=== PATIENT | female | born 1945 | race Caucasian/White ===

== ENCOUNTER 2016-12-02 14:40 | Emergency (ER) | payer OTHER ==
[~2016-12-02] VITALS: Ht 157.5 cm; Wt 71.8 kg
[~2016-12-02 14:40] MED LIST: ASCORBIC ACID250 MG PO; Aspirin PO; BENICAR HCT 201 EACH PO; BENICAR HCT PO; CYMBALTA20 MG PO; CYMBALTA30 MG PO; Colace PO; Cymbalta PO; ENDOCET 5-3251 EACH PO; EVISTA60 MG PO; Evista PO; FIBER TABLET PO; FLOVENT 11120 INHALA IH; HUMULIN R100 UNITS/ SC; Humulin R SC; LIPITOR20 MG PO; Lipitor PO; MOTRIN600 MG PO; MYRBETRIQ25 MG PO; NORVASC5 MG PO; NOVOLIN N100 UNITS/ SC; Norvasc PO; PERCOCET 5/31 TABLET PO; PRILOSEC40 MG PO; PROAIR HFA8.5 GM IH; PROTONIX40 M1 PO; PROTONIX40 MG PO; PROZAC20 MG PO; PROzac PO; Proventil,Ventolin H IH; ROCALTROL0.25 MCG PO; Rocaltrol PO; Senokot,Sennagen PO; Theragran W/Iron,MVI PO; Tylenol Extra Streng PO; Vitamin D PO; Vitamin-E PO; WELCHOL625 MG PO
[2016-12-02 15:23] LABS: POINT-OF-CARE METER ID UU13113778
[2016-12-02] MEDS ORDERED: ULTRACET1 TABLET PO (17:39)
[2016-12-02] MEDS ORDERED: ZOFRAN ODT4 MG PO (17:39)
[2016-12-02] MEDS ORDERED: UNABLE TO OBTAIN (21:39)
[2016-12-02 21:44] VITALS: BP 178/91
== END 2016-12-02 21:47 | disposition home or self-care (01) ==
LOC: EME 14:40
DX: S80.01XA Contusion of right knee, initial encounter (principal); S43.401A Unspecified sprain of right shoulder joint, initial encounter; M54.2 Cervicalgia; R51 Headache; W01.10XA Fall on same level from slipping, tripping and stumbling with subsequent striking against unspecified object, initial encounter; R42 Dizziness and giddiness; R11.0 Nausea; I10 Essential (primary) hypertension; E78.5 Hyperlipidemia, unspecified; E11.9 Type 2 diabetes mellitus without complications; Z79.4 Long term (current) use of insulin; Z79.82 Long term (current) use of aspirin
CPT/HCPCS: 73030; 73564; 82948; 99281; 99284

== ENCOUNTER 2017-09-25 08:08 | Emergency (ER) | payer OTHER ==
[~2017-09-25] VITALS: Ht 157.5 cm; Wt 63.7 kg
[~2017-09-25 08:08] MED LIST changes: +ULTRACET1 TABLET PO; +UNABLE TO OBTAIN; +ZOFRAN ODT4 MG PO
[2017-09-25 08:58] LABS: BASOPHIL (%) 0.4 % (0-1); EOSINOPHIL (%) 5.7 % (0-5); EOSINOPHIL COUNT 0.4 K/uL (0-0.3); HEMATOCRIT 35.8 % (36.0-46.0); HEMOGLOBIN 11.8 G/DL (11.9-15.5); IMMATURE GRANULOCYTE (%) 0.1 % (0.0-0.7); LYMPHOCYTE (%) 22.9 % (15-42); LYMPHOCYTE COUNT 1.7 K/uL (1.0-2.8); MCH 32.3 PG (29.0-34.0); MCV 98.1 FL (83-99); MONOCYTE COUNT 0.8 K/uL (0-0.8); NEUTROPHIL (%) 60.9 % (45-76); NEUTROPHIL COUNT 4.6 K/uL (1.8-6.4); PLATELET COUNT 258 K/uL (156-360); RBC DIS.WIDTH-CV 12.8 % (11.8-14.6); RBC DIS.WIDTH-SD 45.7 % (39-53); RED BLOOD COUNT 3.65 M/uL (3.80-5.20); WHITE BLOOD COUNT 7.6 K/uL (4.1-10.2)
[2017-09-25 09:14] LABS: CHLORIDE 101 mEq/L (99-109); SODIUM 138 mEq/L (136-147)
[2017-09-25 09:16] LABS: GLUCOSE 141 mg/dL (70-99)
[2017-09-25 09:19] LABS: CREATININE 0.8 mg/dL (0.6-1.3); GFR ESTIMATE (CALCULATED) > 59 mL/min/
[2017-09-25 09:20] LABS: UREA NITROGEN (BUN) 16 mg/dL (9-23)
[2017-09-25 09:25] LABS: POTASSIUM 3.4 mEq/L (3.7-5.4)
[2017-09-25 11:17] VITALS: BP 153/81
== END 2017-09-25 11:17 | disposition home or self-care (01) ==
LOC: EME 08:08
PROVIDERS: Emergency Medicine
DX: S09.90XA Unspecified injury of head, initial encounter (principal); S40.022A Contusion of left upper arm, initial encounter; S00.83XA Contusion of other part of head, initial encounter; W18.30XA Fall on same level, unspecified, initial encounter; K21.9 Gastro-esophageal reflux disease without esophagitis; J42 Unspecified chronic bronchitis; I25.10 Atherosclerotic heart disease of native coronary artery without angina pectoris; I10 Essential (primary) hypertension; F41.9 Anxiety disorder, unspecified; F32.9 Major depressive disorder, single episode, unspecified; E78.5 Hyperlipidemia, unspecified; E11.9 Type 2 diabetes mellitus without complications; Z79.82 Long term (current) use of aspirin; Z79.4 Long term (current) use of insulin; Z88.2 Allergy status to sulfonamides; Z88.0 Allergy status to penicillin; Z88.5 Allergy status to narcotic agent
CPT/HCPCS: 70450; 70486; 72125; 73090; 80048; 85025; 85610; 93005; 99281; 99284